=== PATIENT | female | born 1980 | race Caucasian/White ===

== ENCOUNTER 2017-07-16 15:04 | Emergency (ER) | payer OTHER ==
[~2017-07-16] VITALS: Ht 165.1 cm; Wt 68.0 kg
[2017-07-16] MEDS ORDERED: CYMBALTA60 MG PO (15:37)
[2017-07-16] MEDS ORDERED: DOXYCYCLINE HY100 MG PO (15:37)
== END 2017-07-16 18:46 | disposition home or self-care (01) ==
LOC: ED 15:04
DX: N93.9 Abnormal uterine and vaginal bleeding, unspecified (principal); F41.9 Anxiety disorder, unspecified; Z87.891 Personal history of nicotine dependence; Z79.899 Other long term (current) drug therapy
CPT/HCPCS: 80048; 81001; 84702; 84703; 85025; 86900; 86901; 99284